=== PATIENT | male | born 1965 | race Caucasian/White ===

== ENCOUNTER 2018-03-01 15:10 | Emergency (ER) | payer MEDICAID ==
[~2018-03-01] VITALS: Ht 175.3 cm; Wt 100.0 kg
[~2018-03-01 15:10] MED LIST: BUPR150T6 PO; BUPR300T54 PO; CARB1TAB23 PO; DIPH-423 PO; GABA600T2 PO; HYDR50CA5 PO; IBUP-1986 PO; INULIN SQ; MELO-100 PO; METF10004 PO; METF500T7 PO; ONDA8TAB9 PO; PANT-47 PO; PRAZ2CAP2 PO; TOPI25TA15 PO; ZOLP10TA5 PO; [UNRECOGNIZED DRUG - OTHER] PO
[2018-03-01 15:32] VITALS: BP 135/80
[2018-03-01] MEDS ORDERED: PROPARACAINE/FLUORESCEIN ophthalmic drops 5ml bottle LEFTEYE ONE (15:50)
[2018-03-01] MEDS ORDERED: ACYC-202 PO (16:15)
== END 2018-03-01 16:39 | disposition home or self-care (01) ==
LOC: ER 15:11
DX: H02.89 Other specified disorders of eyelid (principal); E11.9 Type 2 diabetes mellitus without complications; G89.29 Other chronic pain; F12.90 Cannabis use, unspecified, uncomplicated; F15.90 Other stimulant use, unspecified, uncomplicated; Z98.890 Other specified postprocedural states; Z88.5 Allergy status to narcotic agent; Z79.84 Long term (current) use of oral hypoglycemic drugs; Z79.899 Other long term (current) drug therapy
CPT/HCPCS: 99283; A6410

== ENCOUNTER 2019-08-24 01:28 | Inpatient (IN) | payer MEDICAID ==
[~2019-08-24] VITALS: Ht 177.8 cm; Wt 101.8 kg
[2019-08-24] VITALS (8 sets, daily range): BP systolic 129–147; BP diastolic 69–81
[~2019-08-24 01:28] MED LIST changes: +GABA600T13 PO; -GABA600T2 PO; +METF-438 PO; -METF10004 PO; +METF500T20 PO; -METF500T7 PO
[2019-08-24 02:06] LABS: BASOPHILS # (AUTO) 0.1 X10'3 (0-0.2); BASOPHILS % (AUTO) 0.9 % (0-1); EOSINOPHILS # (AUTO) 0.2 X10'3 (0-0.9); EOSINOPHILS % (AUTO) 1.7 % (0-6); HEMATOCRIT 40.5 % (42.0-52.0); HEMOGLOBIN 14.4 g/dl (14.0-17.9); LYMPHOCYTES # (AUTO) 5.2 X10'3 (1.1-4.8); LYMPHOCYTES % (AUTO) 48.9 % (21-51); MEAN CORPUSCULAR HEMOGLOBIN 32.8 PG (27.0-31.0); MEAN CORPUSCULAR HGB CONC 35.4 g/dL (33.0-36.5); MEAN CORPUSCULAR VOLUME 92.7 FL (78-98); MEAN PLATELET VOLUME 8.5 FL (7.4-10.4); MONOCYTES # (AUTO) 0.7 X10'3 (0-0.9); MONOCYTES % (AUTO) 6.8 % (2-12); NEUTROPHILS # (AUTO) 4.4 X10'3 (1.8-7.7); NEUTROPHILS % (AUTO) 41.7 % (42-75); PLATELET COUNT 250 X10'3 (140-440); RED BLOOD COUNT 4.37 X10'6 (4.70-6.10); RED CELL DISTRIBUTION WIDTH 13.6 % (11.5-14.5); WHITE BLOOD COUNT 10.7 X10'3 (4.5-11.0)
[2019-08-24 02:17] LABS: ALANINE AMINOTRANSFERASE 68 U/L (12-78); ALBUMIN 4.2 G/DL (3.4-5.0); ALBUMIN/GLOBULIN RATIO 1.3 (1.1-1.5); ALKALINE PHOSPHATASE 67 IU/L (46-116); ANION GAP 15 (8-16); ASPARTATE AMINO TRANSFERASE 39 U/L (10-37); BILIRUBIN,TOTAL 0.2 MG/DL (0.1-1.0); BLOOD UREA NITROGEN 12 MG/DL (7-18); BUN/CREATININE RATIO 8.5 (5.4-32.0); CALCIUM 10.4 MG/DL (8.5-10.1); CHLORIDE 105 MMOL/L (99-107); CREATININE 1.41 MG/DL (0.60-1.10); GLUCOSE 161 MG/DL (70-104); POTASSIUM 3.9 MMOL/L (3.5-5.1); SODIUM 141 MMOL/L (135-145); TOTAL CARBON DIOXIDE 20.8 MMOL/L (24-32); TOTAL PROTEIN 7.5 G/DL (6.4-8.2); eGFR 53 ML/MIN
[2019-08-24 02:39] LABS: URINE AMPHETAMINE SCREEN NEGATIVE (Neg); URINE BARBITUATE SCREEN NEGATIVE (Neg); URINE BENZODIAZEPINES SCREEN NEGATIVE (Neg); URINE CANNABINOID SCREEN NEGATIVE (Neg); URINE COCAINE SCREEN NEGATIVE (Neg); URINE METHADONE SCREEN NEGATIVE (Neg); URINE OPIATE SCREEN NEGATIVE (Neg); URINE PHENCYCLIDINE SCREEN NEGATIVE (Neg)
[2019-08-24 02:42] LABS: ETHANOL 0.097 GM/DL (0.0-0.010)
[2019-08-24] MEDS ORDERED: normal saline 1000ML IV soln IVB ONE ×2 (02:45→04:00)
[2019-08-24] MEDS ORDERED: LORazepam 2 mg/ml vial IV ONE (02:45)
[2019-08-24 02:52] LABS: LIPASE 105 U/L (73-393)
[2019-08-24] MEDS ORDERED: PRAZ5CAP PO (04:19)
[2019-08-24] MEDS ORDERED: NORT25CA PO (04:19)
[2019-08-24] MEDS ORDERED: INSU100I31 SQ (04:21)
[2019-08-24] MEDS ORDERED: normal saline 1000ml 1,000 ML IV SCH (04:57)
[2019-08-24] MEDS ORDERED: BENZ1TAB7 PO (04:59)
[2019-08-24] MEDS ORDERED: magnesium hydroxide 30ml (MOM) UD suspension PO PRN (05:00)
[2019-08-24] MEDS ORDERED: metoprolol tartrate 1mg/ml inj IV PRN (05:00)
[2019-08-24] MEDS ORDERED: ondansetron/PF 4mg/2ml inj IV PRN (05:00)
[2019-08-24] MEDS ORDERED: acetaminophen 325mg tablet PO PRN (05:00)
[2019-08-24] MEDS ORDERED: aspirin 81mg tab.chew PO ONE (05:00)
[2019-08-24] MEDS ORDERED: regadenoson 0.4mg/5ml syringe IV PRN (05:00)
[2019-08-24] MEDS ORDERED: nitroGLYCERIN 0.4mg SUBLingual tab SL PRN (05:00)
[2019-08-24] MEDS ORDERED: enoxaparin 80mg/0.8ml syringe SUBCUT ONE (05:00)
[2019-08-24] MEDS ORDERED: mag hydrox/Alum hydrox/simeth 30ml oral suspension PO PRN (05:00)
[2019-08-24] MEDS ORDERED: aminophylline 250mg/10ml inj. IV PRN (05:00)
[2019-08-24] MEDS ORDERED: hydrOXYzine 25 MG tablet PO PRN (05:35)
--- NOTE | 2019-08-24 06:45 | NUR ---
Patient in room PCU 3017. I have received report from Frances RN and had the opportunity to ask questions and assume patient care.
--- NOTE | 2019-08-24 06:53 | NUR ---
Patient received from ED. Patient vitals taken and are within normal limits. Patient oriented to call light and room. Patient resting and in no signs of distress.
--- NOTE | 2019-08-24 07:41 | NUR ---
Page Dr. Melendez PAGER ID: [phone] MESSAGE: [id number] Jass Wong: Is Shira Scan still scheduled for today? If rescheduled, could I place patient on CC diet? Thank you, Kristen ext [phone].
[2019-08-24] MEDS ORDERED: insulin glargine (Lantus) pen - multi-dose SQ SCH (08:00)
[2019-08-24] MEDS ORDERED: benztropine 1mg tablet PO SCH (08:00)
[2019-08-24] MEDS ORDERED: aspirin 81mg tab.chew PO SCH (08:30)
[2019-08-24] MEDS: gabapentin 300mg capsule PO SCH ×2 (09:23→13:03)
[2019-08-24] MEDS ORDERED: levoTHYROXINE 25mcg tablet PO SCH (10:10)
--- NOTE | 2019-08-24 13:39 | NUR ---
Page Dr. Melendez PAGER ID: [phone] MESSAGE: [phone] Jass Wong: Patient's Shira scan results are in, fyi. Thank you, ext [phone].
[2019-08-24] MEDS ORDERED: LEVO25TA7 PO (13:52)
[2019-08-24] MEDS ORDERED: ASPI-1265 PO (13:52)
--- NOTE | 2019-08-24 15:30 | NUR ---
Patient stable for discharge per MD orders. All discharge instructions reviewed with patient and all questions answered. New prescriptions e-scripted to patient's preferred pharmacy. PIV & residential monitor discontinued. Belongings collected and sent with patient. Patient left in private vehicle with girlfriend. Patient walked out by primary RN.
[2019-08-24] MEDS ORDERED: enoxaparin 60mg/0.6ml syringe SUBCUT SCH (20:00)
[2019-08-24] MEDS ORDERED: enoxaparin 30mg/0.3ml syringe SUBCUT SCH (20:00)
[2019-08-24] MEDS ORDERED: nortriptyline 25mg capsule PO SCH (21:00)
[2019-08-24] MEDS ORDERED: prazosin 1mg capsule PO SCH (21:00)
== END 2019-08-24 12:47 | disposition home or self-care (01) | DRG 243 ==
LOC: ER 01:28 → ED HOLD 04:59 → PCU 3S 06:53
PROVIDERS: ADMIT Internal Medicine; ATTEND Family Medicine
PROC: 4A02XM4 Measurement of Cardiac Total Activity, External Approach (ICD-10-PCS; principal; 2019-08-24)
PROC: 3E033HZ Introduction of Radioactive Substance into Peripheral Vein, Percutaneous Approach (ICD-10-PCS; 2019-08-24)
DX: K21.9 Gastro-esophageal reflux disease without esophagitis (principal); E83.52 Hypercalcemia; E03.9 Hypothyroidism, unspecified; E11.9 Type 2 diabetes mellitus without complications; E78.5 Hyperlipidemia, unspecified; F10.920 Alcohol use, unspecified with intoxication, uncomplicated; F41.0 Panic disorder [episodic paroxysmal anxiety]; F43.10 Post-traumatic stress disorder, unspecified; B19.20 Unspecified viral hepatitis C without hepatic coma; F17.210 Nicotine dependence, cigarettes, uncomplicated; F12.90 Cannabis use, unspecified, uncomplicated; F32.9 Major depressive disorder, single episode, unspecified; G89.29 Other chronic pain; M54.9 Dorsalgia, unspecified; I10 Essential (primary) hypertension; I20.0 Unstable angina; N28.9 Disorder of kidney and ureter, unspecified; Z82.49 Family history of ischemic heart disease and other diseases of the circulatory system; Z88.5 Allergy status to narcotic agent
CPT/HCPCS: 36415; 71045; 78452; 80053; 80305; 80320; 82948; 83690; 84443; 84484; 85025; 87081; 93005; 93017; 96374; 99285; A9500; G0378; J1650; J1815; J2060; J2785

== ENCOUNTER 2019-09-24 21:24 | Emergency (ER) | payer MEDICAID ==
[~2019-09-24] VITALS: Ht 175.3 cm; Wt 104.0 kg
[~2019-09-24 21:24] MED LIST changes: +ASPI-1265 PO; +BENZ1TAB7 PO; -BUPR150T6 PO; -BUPR300T54 PO; -CARB1TAB23 PO; -DIPH-423 PO; -IBUP-1986 PO; +INSU100I31 SQ; -INULIN SQ; +LEVO25TA7 PO; -MELO-100 PO; +NORT25CA PO; -ONDA8TAB9 PO; -PANT-47 PO; -PRAZ2CAP2 PO; +PRAZ5CAP PO; -TOPI25TA15 PO; -ZOLP10TA5 PO; -[UNRECOGNIZED DRUG - OTHER] PO
--- NOTE | 2019-09-24 21:52 | NUR ---
Pt brought to room 25 in overflow from triage, escorted by RN and security. Pt reports that he is having an anxiety attack and during the height of it he had thoughts of cutting himself. He states that he has cut himself before in a suicide attempt. The patient also states that he currently does not have the desire to cut himself as he feels that the atarax he took at home is starting to kick in.
--- NOTE | 2019-09-24 21:56 | NUR ---
Pt reports that he drank a full bottle of rum tonight, finishing at 2029.
[2019-09-24] MEDS ORDERED: PRAZ5CAP PO (22:00)
[2019-09-24] MEDS ORDERED: LEVO50TA8 PO (22:02)
[2019-09-24] MEDS ORDERED: ASPI81TA52 PO (22:02)
--- NOTE | 2019-09-24 22:36 | NUR ---
Notified LEN Marrero of 89/48 SBP who verbally ordered 1L NS bolus and stated that he would come bedside to evaluate the patient.
[2019-09-24] MEDS ORDERED: normal saline 1000ml 1,000 ML IV ONE (22:45)
--- NOTE | 2019-09-24 23:20 | NUR ---
Girlfriend Carmela Ayala [phone]. The patient requests that the girlfriend is contacted if he is placed or if he is being discharged. She took all of the patients clothes home with her. Patient resting comfortably in bed and getting fludis via IV. Q15 checks for safety.
[2019-09-24 23:43] LABS: CLARITY,URINE CLEAR (Clear); COLOR,URINE YELLOW (Yellow); GLUCOSE, URINE 500 mg/dl (Neg); KETONES,URINE NEGATIVE (Neg); LEUKOCYTE ESTERASE ,URINE NEGATIVE (Neg); NITRITES, URINE NEGATIVE (Neg); OCCULT BLOOD,URINE NEGATIVE (Neg); PROTEIN,URINE NEGATIVE (Neg); UROBILINOGEN,URINE 0.2 E.U/dL (0.2-1.0)
--- NOTE | 2019-09-24 23:43 | NUR ---
Pt is sleeping on his right side at the moment with visible respirations. Pt is not in distress at this time. At 2325, he reported that he was developing a mild headache but denied medication intervention.
[2019-09-24 23:51] LABS: UA COLLECTION TYPE URINAL
[2019-09-24 23:52] LABS: URINE AMPHETAMINE SCREEN NEGATIVE (Neg); URINE BARBITUATE SCREEN NEGATIVE (Neg); URINE BENZODIAZEPINES SCREEN NEGATIVE (Neg); URINE CANNABINOID SCREEN NEGATIVE (Neg); URINE COCAINE SCREEN NEGATIVE (Neg); URINE METHADONE SCREEN NEGATIVE (Neg); URINE OPIATE SCREEN NEGATIVE (Neg); URINE PHENCYCLIDINE SCREEN NEGATIVE (Neg)
[2019-09-24 23:55] LABS: BASOPHILS # (AUTO) 0.1 X10'3 (0-0.2); BASOPHILS % (AUTO) 1.1 % (0-1); EOSINOPHILS # (AUTO) 0.1 X10'3 (0-0.9); EOSINOPHILS % (AUTO) 1.3 % (0-6); HEMATOCRIT 35.9 % (42.0-52.0); HEMOGLOBIN 12.8 g/dl (14.0-17.9); LYMPHOCYTES # (AUTO) 3.3 X10'3 (1.1-4.8); LYMPHOCYTES % (AUTO) 45.8 % (21-51); MEAN CORPUSCULAR HEMOGLOBIN 33.2 PG (27.0-31.0); MEAN CORPUSCULAR HGB CONC 35.8 g/dL (33.0-36.5); MEAN CORPUSCULAR VOLUME 92.9 FL (78-98); MEAN PLATELET VOLUME 8.6 FL (7.4-10.4); MONOCYTES # (AUTO) 0.5 X10'3 (0-0.9); MONOCYTES % (AUTO) 6.9 % (2-12); NEUTROPHILS # (AUTO) 3.3 X10'3 (1.8-7.7); NEUTROPHILS % (AUTO) 44.9 % (42-75); PLATELET COUNT 206 X10'3 (140-440); RED BLOOD COUNT 3.87 X10'6 (4.70-6.10); RED CELL DISTRIBUTION WIDTH 13.8 % (11.5-14.5); WHITE BLOOD COUNT 7.3 X10'3 (4.5-11.0)
[2019-09-25 00:26] LABS: ALANINE AMINOTRANSFERASE 63 U/L (12-78); ALBUMIN 3.7 G/DL (3.4-5.0); ALBUMIN/GLOBULIN RATIO 1.3 (1.1-1.5); ALKALINE PHOSPHATASE 54 IU/L (46-116); ANION GAP 17 (8-16); BILIRUBIN,TOTAL 0.2 MG/DL (0.1-1.0); BLOOD UREA NITROGEN 13 MG/DL (7-18); BUN/CREATININE RATIO 11.3 (5.4-32.0); CALCIUM 8.8 MG/DL (8.5-10.1); CHLORIDE 104 MMOL/L (99-107); CREATININE 1.15 MG/DL (0.60-1.10); ETHANOL 0.046 GM/DL (0.0-0.010); GLUCOSE 226 MG/DL (70-104); SODIUM 139 MMOL/L (135-145); TOTAL PROTEIN 6.6 G/DL (6.4-8.2); eGFR 67 ML/MIN
[2019-09-25 00:27] LABS: ASPARTATE AMINO TRANSFERASE 35 U/L (10-37); POTASSIUM 3.9 MMOL/L (3.5-5.1)
[2019-09-25 00:57] VITALS: BP 130/69
== END 2019-09-25 01:02 | disposition home or self-care (01) ==
LOC: ER 21:26
DX: F41.9 Anxiety disorder, unspecified (principal); F31.9 Bipolar disorder, unspecified; I10 Essential (primary) hypertension; R42 Dizziness and giddiness; E11.9 Type 2 diabetes mellitus without complications; G89.29 Other chronic pain; F12.90 Cannabis use, unspecified, uncomplicated; F15.90 Other stimulant use, unspecified, uncomplicated; Z98.890 Other specified postprocedural states; Z88.5 Allergy status to narcotic agent; Z79.82 Long term (current) use of aspirin; Z79.84 Long term (current) use of oral hypoglycemic drugs; Z79.899 Other long term (current) drug therapy
CPT/HCPCS: 36415; 80053; 80305; 80320; 81003; 82948; 85025; 93005; 96360; 99284; J7030

== ENCOUNTER 2020-05-26 22:08 | Emergency (ER) | payer MEDICAID ==
[~2020-05-26] VITALS: Ht 175.3 cm; Wt 154.9 kg
[~2020-05-26 22:08] MED LIST changes: -ASPI-1265 PO; +ASPI81TA52 PO; -LEVO25TA7 PO; +LEVO50TA8 PO; +METF-900 PO; -METF500T20 PO
[2020-05-26 23:01] LABS: BASOPHILS # (AUTO) 0.1 X10'3 (0-0.2); BASOPHILS % (AUTO) 1.4 % (0-1); EOSINOPHILS % (AUTO) 0.4 % (0-6); HEMATOCRIT 42.8 % (42.0-52.0); HEMOGLOBIN 14.8 g/dl (14.0-17.9); LYMPHOCYTES # (AUTO) 3.7 X10'3 (1.1-4.8); MEAN CORPUSCULAR HEMOGLOBIN 33.4 PG (27.0-31.0); MEAN CORPUSCULAR HGB CONC 34.5 g/dL (33.0-36.5); MEAN CORPUSCULAR VOLUME 96.7 FL (78-98); MEAN PLATELET VOLUME 8.5 FL (7.4-10.4); MONOCYTES # (AUTO) 0.5 X10'3 (0-0.9); MONOCYTES % (AUTO) 4.9 % (2-12); NEUTROPHILS # (AUTO) 5.1 X10'3 (1.8-7.7); NEUTROPHILS % (AUTO) 54.3 % (42-75); PLATELET COUNT 256 X10'3 (140-440); RED BLOOD COUNT 4.43 X10'6 (4.70-6.10); RED CELL DISTRIBUTION WIDTH 13.7 % (11.5-14.5); WHITE BLOOD COUNT 9.4 X10'3 (4.5-11.0)
--- NOTE | 2020-05-26 23:07 | NUR ---
Poison control----Monitor for QRS widening, repeat 12-lead every 2-4 hours, 1-2 amps bicarb if QRS>100. Benzos and/or phenobarb for Sz. Levophed for hypotension.
[2020-05-26 23:12] LABS: ALANINE AMINOTRANSFERASE 80 U/L (12-78); ALBUMIN 4.2 G/DL (3.4-5.0); ALBUMIN/GLOBULIN RATIO 1.1 (1.1-1.5); ALKALINE PHOSPHATASE 61 IU/L (46-116); ANION GAP 15 (8-16); ASPARTATE AMINO TRANSFERASE 55 U/L (10-37); BILIRUBIN,TOTAL 0.2 MG/DL (0.1-1.0); BLOOD UREA NITROGEN 8 MG/DL (7-18); BUN/CREATININE RATIO 7.2 (5.4-32.0); CALCIUM 10.4 MG/DL (8.5-10.1); CHLORIDE 105 MMOL/L (99-107); CREATININE 1.11 MG/DL (0.60-1.10); GLUCOSE 160 MG/DL (70-104); POTASSIUM 3.9 MMOL/L (3.5-5.1); SODIUM 142 MMOL/L (135-145); TOTAL CARBON DIOXIDE 21.8 MMOL/L (24-32); eGFR 69 ML/MIN
[2020-05-26 23:13] LABS: ACETAMINOPHEN < 2.0 UG/ML (10-30)
[2020-05-26] MEDS ORDERED: MIDAZolam 1mg/ml 10ml vial IM ONE (23:25)
[2020-05-26] MEDS ORDERED: MIDAZolam 5mg/ml 2ml vial IM ONE ×2 (23:25→23:40)
--- NOTE | 2020-05-27 00:13 | NUR ---
Lesley merrill in [facility] - 05/27/20 at 0014 by DONATO while escorting patietn to [facility] and medication administration. patient robb tro
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
[2020-05-27] MEDS ORDERED: haloperidol lactate 5mg/ml inj IM ONE (00:25)
[2020-05-27] MEDS ORDERED: diphenhydrAMINE 50 mg/ml inj IM ONE (01:05)
[2020-05-27] MEDS ORDERED: MIDAZolam 5mg/ml 2ml vial IV ONE (01:35)
[2020-05-27] MEDS ORDERED: normal saline 1000ml 1,000 ML IV ONE ×4 (01:45→04:40)
[2020-05-27] MEDS ORDERED: dexmedetomidin/NS 400mcg/100ml 100 ML IV SCH ×2 (02:25→02:35)
[2020-05-27 03:21] LABS: ALBUMIN 4.1 G/DL (3.4-5.0); ANION GAP 17 (8-16); BLOOD UREA NITROGEN 9 MG/DL (7-18); BUN/CREATININE RATIO 7.1 (5.4-32.0); CALCIUM 9.5 MG/DL (8.5-10.1); CHLORIDE 107 MMOL/L (99-107); CREATINE KINASE 983 U/L (39-308); CREATININE 1.26 MG/DL (0.60-1.10); GLUCOSE 188 MG/DL (70-104); POTASSIUM 4.2 MMOL/L (3.5-5.1); SODIUM 143 MMOL/L (135-145); TOTAL CARBON DIOXIDE 19.1 MMOL/L (24-32); eGFR 60 ML/MIN
--- NOTE | 2020-05-27 06:15 | NUR ---
PATIENT SLEEPING, AUDIBLE SNORING WITH NO DISTRESS NOTED. PATIENT WOKE UP WITH TACTILE STIMULATION, MUMMBLED INAUDIBLE "... NAP...", INSTRUCTED PATIENT HE CAN TAKE A NAP AT THIS TIME, REPOSITIONED SELF FOR COMFORT AND FELL ASLEEP. PATIENT WITHIN SITE OF NURSING STATION AT ALL TIMES, NO RESTRIANTS IN PLACE AT THIS TIME, PATIENT ON ROOM AIR, 20 G IV TO RIGHT FOREARM WNL.
[2020-05-27 06:58] LABS: URINE AMPHETAMINE SCREEN NEGATIVE (Neg); URINE BARBITUATE SCREEN NEGATIVE (Neg); URINE BENZODIAZEPINES SCREEN POSITIVE (Neg); URINE CANNABINOID SCREEN NEGATIVE (Neg); URINE COCAINE SCREEN NEGATIVE (Neg); URINE METHADONE SCREEN NEGATIVE (Neg); URINE OPIATE SCREEN NEGATIVE (Neg); URINE PHENCYCLIDINE SCREEN NEGATIVE (Neg)
--- NOTE | 2020-05-27 08:43 | NUR ---
YULIANA CEDENO [phone]. Addendum: 05/27/20 at 0845 by [facility]
--- NOTE | 2020-05-27 12:44 | NUR ---
[facility] AT BEDSIDE TO SPEAK WITH PATIENT AT THIS TIME.
--- NOTE | 2020-05-27 13:42 | NUR ---
Patient ate a meal and appears to be resting comfortably
[2020-05-27 14:42] VITALS: BP 139/65
== END 2020-05-27 14:43 ==
LOC: ER 22:08
DX: T50.902A Poisoning by unspecified drugs, medicaments and biological substances, intentional self-harm, initial encounter (principal); R45.851 Suicidal ideations; F10.129 Alcohol abuse with intoxication, unspecified; Y90.0 Blood alcohol level of less than 20 mg/100 ml; I10 Essential (primary) hypertension; E11.9 Type 2 diabetes mellitus without complications; G89.29 Other chronic pain; F41.9 Anxiety disorder, unspecified; F12.90 Cannabis use, unspecified, uncomplicated; F15.90 Other stimulant use, unspecified, uncomplicated; Z86.19 Personal history of other infectious and parasitic diseases; Z98.890 Other specified postprocedural states; Z88.5 Allergy status to narcotic agent; Z79.82 Long term (current) use of aspirin; Z79.4 Long term (current) use of insulin; Z79.899 Other long term (current) drug therapy; Y92.89 Other specified places as the place of occurrence of the external cause
CPT/HCPCS: 36415; 80048; 80053; 80305; 80320; 80329; 82550; 82948; 84443; 85025; 93005; 96361; 96372; 96374; 99291; J1200; J1630; J2250; J7030

== ENCOUNTER 2020-06-04 10:04 | Emergency (ER) | payer MEDICAID ==
[~2020-06-04] VITALS: Ht 175.3 cm; Wt 103.6 kg
[2020-06-04 11:45] LABS: BASOPHILS # (AUTO) 0.1 X10'3 (0-0.2); BASOPHILS % (AUTO) 0.7 % (0-1); EOSINOPHILS # (AUTO) 0.2 X10'3 (0-0.9); EOSINOPHILS % (AUTO) 1.9 % (0-6); HEMATOCRIT 43.9 % (42.0-52.0); HEMOGLOBIN 14.9 g/dl (14.0-17.9); LYMPHOCYTES # (AUTO) 2.4 X10'3 (1.1-4.8); LYMPHOCYTES % (AUTO) 25.7 % (21-51); MEAN CORPUSCULAR HEMOGLOBIN 32.8 PG (27.0-31.0); MEAN CORPUSCULAR VOLUME 96.7 FL (78-98); MEAN PLATELET VOLUME 8.2 FL (7.4-10.4); MONOCYTES # (AUTO) 0.7 X10'3 (0-0.9); MONOCYTES % (AUTO) 7.5 % (2-12); NEUTROPHILS % (AUTO) 64.2 % (42-75); PLATELET COUNT 244 X10'3 (140-440); RED BLOOD COUNT 4.55 X10'6 (4.70-6.10); RED CELL DISTRIBUTION WIDTH 13.9 % (11.5-14.5); WHITE BLOOD COUNT 9.3 X10'3 (4.5-11.0)
[2020-06-04 11:59] LABS: ALANINE AMINOTRANSFERASE 100 U/L (12-78); ALBUMIN 4.3 G/DL (3.4-5.0); ALBUMIN/GLOBULIN RATIO 1.3 (1.1-1.5); ALKALINE PHOSPHATASE 58 IU/L (46-116); ANION GAP 8 (8-16); ASPARTATE AMINO TRANSFERASE 33 U/L (10-37); BILIRUBIN,TOTAL 0.3 MG/DL (0.1-1.0); BLOOD UREA NITROGEN 15 MG/DL (7-18); BUN/CREATININE RATIO 15.3 (5.4-32.0); CALCIUM 9.6 MG/DL (8.5-10.1); CHLORIDE 101 MMOL/L (99-107); CREATININE 0.98 MG/DL (0.60-1.10); GLUCOSE 146 MG/DL (70-104); PARTIAL THROMBOPLASTIN TIME 25 SECONDS (22-32); POTASSIUM 4.1 MMOL/L (3.5-5.1); SODIUM 135 MMOL/L (135-145); TOTAL CARBON DIOXIDE 25.9 MMOL/L (24-32); TOTAL PROTEIN 7.6 G/DL (6.4-8.2); eGFR 80 ML/MIN
[2020-06-04 12:25] VITALS: BP 151/97
[2020-06-04 13:23] LABS: OCCULT BLOOD STOOL POSITIVE (Neg)
== END 2020-06-04 12:27 | disposition home or self-care (01) ==
LOC: ER 10:05
DX: K92.2 Gastrointestinal hemorrhage, unspecified (principal); I10 Essential (primary) hypertension; E11.9 Type 2 diabetes mellitus without complications; G89.29 Other chronic pain; F41.9 Anxiety disorder, unspecified; F32.9 Major depressive disorder, single episode, unspecified; F12.90 Cannabis use, unspecified, uncomplicated; F15.90 Other stimulant use, unspecified, uncomplicated; Z86.19 Personal history of other infectious and parasitic diseases; Z98.890 Other specified postprocedural states; Z88.5 Allergy status to narcotic agent; Z79.82 Long term (current) use of aspirin; Z79.4 Long term (current) use of insulin; Z79.899 Other long term (current) drug therapy
CPT/HCPCS: 36415; 80053; 82272; 85025; 85610; 85730; 99283

== ENCOUNTER 2020-06-11 07:18 | Emergency (ER) | payer MEDICAID ==
[~2020-06-11] VITALS: Ht 175.3 cm; Wt 90.0 kg
[2020-06-11] MEDS ORDERED: famotidine/PF 10 mg/ml inj IV ONE (07:45)
[2020-06-11 07:56] LABS: BASOPHILS # (AUTO) 0.1 X10'3 (0-0.2); BASOPHILS % (AUTO) 1.1 % (0-1); EOSINOPHILS # (AUTO) 0.6 X10'3 (0-0.9); EOSINOPHILS % (AUTO) 6.7 % (0-6); HEMATOCRIT 43.1 % (42.0-52.0); HEMOGLOBIN 14.8 g/dl (14.0-17.9); LYMPHOCYTES # (AUTO) 2.3 X10'3 (1.1-4.8); LYMPHOCYTES % (AUTO) 24.8 % (21-51); MEAN CORPUSCULAR HEMOGLOBIN 32.9 PG (27.0-31.0); MEAN CORPUSCULAR HGB CONC 34.4 g/dL (33.0-36.5); MEAN CORPUSCULAR VOLUME 95.7 FL (78-98); MEAN PLATELET VOLUME 8.4 FL (7.4-10.4); MONOCYTES # (AUTO) 0.7 X10'3 (0-0.9); MONOCYTES % (AUTO) 6.9 % (2-12); NEUTROPHILS # (AUTO) 5.7 X10'3 (1.8-7.7); NEUTROPHILS % (AUTO) 60.5 % (42-75); PLATELET COUNT 206 X10'3 (140-440); RED CELL DISTRIBUTION WIDTH 13.9 % (11.5-14.5); WHITE BLOOD COUNT 9.4 X10'3 (4.5-11.0)
[2020-06-11 08:09] LABS: ALANINE AMINOTRANSFERASE 67 U/L (12-78); ALBUMIN 3.8 G/DL (3.4-5.0); ALKALINE PHOSPHATASE 72 IU/L (46-116); ANION GAP 7 (8-16); ASPARTATE AMINO TRANSFERASE 30 U/L (10-37); BILIRUBIN,TOTAL 0.3 MG/DL (0.1-1.0); BLOOD UREA NITROGEN 15 MG/DL (7-18); BUN/CREATININE RATIO 12.7 (5.4-32.0); CALCIUM 10.2 MG/DL (8.5-10.1); CHLORIDE 100 MMOL/L (99-107); CREATININE 1.18 MG/DL (0.60-1.10); GLUCOSE 268 MG/DL (70-104); LIPASE 97 U/L (73-393); POTASSIUM 4.2 MMOL/L (3.5-5.1); SODIUM 136 MMOL/L (135-145); TOTAL CARBON DIOXIDE 29.5 MMOL/L (24-32); TOTAL PROTEIN 7.6 G/DL (6.4-8.2); eGFR 64 ML/MIN
[2020-06-11] MEDS ORDERED: iohexol 300mg/ml 100ml inj. ONE (08:36)
[2020-06-11] MEDS ORDERED: MESSAGE TO NURSING PO SCH (09:00)
[2020-06-11] MEDS ORDERED: mag hydrox/Alum hydrox/simeth 30ml oral suspension PO ONE (09:25)
[2020-06-11] MEDS ORDERED: diphenhydrAMINE 25 MG/10 ML UD oral solution PO ONE (09:25)
[2020-06-11] MEDS ORDERED: LIDOcaine Viscous 15ml cup MM ONE (09:25)
[2020-06-11] MEDS ORDERED: ondansetron/PF 4mg/2ml inj IV ONE (09:35)
[2020-06-11] MEDS ORDERED: OMEP40CA13 PO (10:27)
[2020-06-11] MEDS ORDERED: FAMO40TA73 PO (10:27)
[2020-06-11 10:38] VITALS: BP 152/84
== END 2020-06-11 10:40 | disposition home or self-care (01) ==
LOC: ER 07:19
DX: K29.00 Acute gastritis without bleeding (principal); I10 Essential (primary) hypertension; E11.9 Type 2 diabetes mellitus without complications; G89.29 Other chronic pain; F41.9 Anxiety disorder, unspecified; F32.9 Major depressive disorder, single episode, unspecified; F12.90 Cannabis use, unspecified, uncomplicated; F15.90 Other stimulant use, unspecified, uncomplicated; Z98.890 Other specified postprocedural states; Z88.5 Allergy status to narcotic agent; Z79.82 Long term (current) use of aspirin; Z79.4 Long term (current) use of insulin; Z79.899 Other long term (current) drug therapy
CPT/HCPCS: 36415; 74177; 80053; 83690; 85025; 93005; 96374; 96375; 99285; J2405; J3490; Q0163; Q9967

== ENCOUNTER 2021-03-22 22:37 | Emergency (ER) | payer MEDICAID ==
[~2021-03-22] VITALS: Ht 175.3 cm; Wt 101.4 kg
[~2021-03-22 22:37] MED LIST changes: +CYCL-1 PO; +FAMO40TA73 PO
[2021-03-22] MEDS ORDERED: ketorolac trometh. 30mg/ml inj. IV STA (22:51)
[2021-03-22] MEDS ORDERED: normal saline 1000ml 1,000 ML IVB ONE (22:55)
[2021-03-22] MEDS ORDERED: normal saline 1000ML IV soln IVB ONE (23:05)
[2021-03-22] MEDS ORDERED: ketorolac tromethamine 15mg/ml inj. IV ONE (23:05)
[2021-03-22 23:26] LABS: BASOPHILS # (AUTO) 0.1 X10'3 (0-0.2); EOSINOPHILS # (AUTO) 0.1 X10'3 (0-0.9); EOSINOPHILS % (AUTO) 0.9 % (0-6); HEMATOCRIT 41.2 % (42.0-52.0); HEMOGLOBIN 14.2 g/dl (14.0-17.9); LYMPHOCYTES % (AUTO) 43.7 % (21-51); MEAN CORPUSCULAR HEMOGLOBIN 32.2 PG (27.0-31.0); MEAN CORPUSCULAR HGB CONC 34.4 g/dL (33.0-36.5); MEAN CORPUSCULAR VOLUME 93.7 FL (78-98); MEAN PLATELET VOLUME 8.3 FL (7.4-10.4); MONOCYTES # (AUTO) 0.6 X10'3 (0-0.9); MONOCYTES % (AUTO) 7.1 % (2-12); NEUTROPHILS # (AUTO) 4.3 X10'3 (1.8-7.7); NEUTROPHILS % (AUTO) 47.3 % (42-75); PLATELET COUNT 222 X10'3 (140-440); WHITE BLOOD COUNT 9.1 X10'3 (4.5-11.0)
[2021-03-22 23:48] LABS: ALANINE AMINOTRANSFERASE 81 U/L (12-78); ALBUMIN 4.2 G/DL (3.4-5.0); ALBUMIN/GLOBULIN RATIO 1.1 (1.1-1.5); ALKALINE PHOSPHATASE 81 IU/L (46-116); ANION GAP 15 (8-16); ASPARTATE AMINO TRANSFERASE 54 U/L (10-37); BILIRUBIN,TOTAL 0.3 MG/DL (0.1-1.0); BLOOD UREA NITROGEN 10 MG/DL (7-18); BUN/CREATININE RATIO 9.6 (5.4-32.0); CHLORIDE 103 MMOL/L (99-107); CREATININE 1.04 MG/DL (0.60-1.10); ETHANOL 0.222 GM/DL (0.0-0.010); GLUCOSE 273 MG/DL (70-104); LIPASE 51 U/L (73-393); POTASSIUM 3.9 MMOL/L (3.5-5.1); SODIUM 138 MMOL/L (135-145); TOTAL CARBON DIOXIDE 19.9 MMOL/L (24-32); TOTAL PROTEIN 7.9 G/DL (6.4-8.2); eGFR 74 ML/MIN
[2021-03-23 00:01] LABS: CLARITY,URINE CLEAR (Clear); COLOR,URINE STRAW (Yellow); GLUCOSE, URINE 100 mg/dl (Neg); KETONES,URINE NEGATIVE (Neg); LEUKOCYTE ESTERASE ,URINE NEGATIVE (Neg); NITRITES, URINE NEGATIVE (Neg); OCCULT BLOOD,URINE NEGATIVE (Neg); PROTEIN,URINE NEGATIVE (Neg); UROBILINOGEN,URINE 0.2 E.U/dL (0.2-1.0)
[2021-03-23 00:07] LABS: UA COLLECTION TYPE URINAL
[2021-03-23 00:13] LABS: URINE AMPHETAMINE SCREEN NEGATIVE (Neg); URINE BARBITUATE SCREEN NEGATIVE (Neg); URINE BENZODIAZEPINES SCREEN NEGATIVE (Neg); URINE CANNABINOID SCREEN NEGATIVE (Neg); URINE COCAINE SCREEN NEGATIVE (Neg); URINE METHADONE SCREEN NEGATIVE (Neg); URINE OPIATE SCREEN NEGATIVE (Neg); URINE PHENCYCLIDINE SCREEN NEGATIVE (Neg)
[2021-03-23] MEDS ORDERED: DIAZ-351 PO (00:24)
[2021-03-23] MEDS ORDERED: METH-797 PO (00:24)
[2021-03-23] MEDS ORDERED: cyclobenzaprine 10mg tablet PO ONE (00:25)
[2021-03-23 00:48] VITALS: BP 116/71
== END 2021-03-23 01:38 | disposition home or self-care (01) ==
LOC: ER 22:38
DX: S39.012A Strain of muscle, fascia and tendon of lower back, initial encounter (principal); F10.920 Alcohol use, unspecified with intoxication, uncomplicated; E11.65 Type 2 diabetes mellitus with hyperglycemia; Z79.4 Long term (current) use of insulin; I10 Essential (primary) hypertension; F32.9 Major depressive disorder, single episode, unspecified; F41.9 Anxiety disorder, unspecified; F12.10 Cannabis abuse, uncomplicated; F15.10 Other stimulant abuse, uncomplicated; Z88.5 Allergy status to narcotic agent; Z79.899 Other long term (current) drug therapy
CPT/HCPCS: 36415; 80053; 80305; 80320; 81003; 83690; 85025; 96361; 96374; 99284; J1885; J7030; 99283

== ENCOUNTER 2021-07-12 20:39 | Emergency (ER) | payer MEDICAID ==
[~2021-07-12] VITALS: Ht 175.3 cm; Wt 94.5 kg
[~2021-07-12 20:39] MED LIST changes: +DIAZ-351 PO; +METH-797 PO
[2021-07-12 21:15] LABS: BASOPHILS # (AUTO) 0.1 X10'3 (0-0.2); EOSINOPHILS # (AUTO) 0.1 X10'3 (0-0.9); EOSINOPHILS % (AUTO) 1.1 % (0-6); HEMOGLOBIN 14.3 g/dl (14.0-17.9); LYMPHOCYTES # (AUTO) 3.2 X10'3 (1.1-4.8); LYMPHOCYTES % (AUTO) 41.5 % (21-51); MEAN CORPUSCULAR HEMOGLOBIN 32.5 PG (27.0-31.0); MEAN CORPUSCULAR HGB CONC 34.9 g/dL (33.0-36.5); MEAN CORPUSCULAR VOLUME 93.2 FL (78-98); MEAN PLATELET VOLUME 8.1 FL (7.4-10.4); MONOCYTES # (AUTO) 0.6 X10'3 (0-0.9); MONOCYTES % (AUTO) 8.1 % (2-12); NEUTROPHILS # (AUTO) 3.7 X10'3 (1.8-7.7); NEUTROPHILS % (AUTO) 48.3 % (42-75); PLATELET COUNT 194 X10'3 (140-440); RED CELL DISTRIBUTION WIDTH 13.5 % (11.5-14.5); WHITE BLOOD COUNT 7.6 X10'3 (4.5-11.0)
[2021-07-12 21:25] LABS: ALANINE AMINOTRANSFERASE 122 U/L (12-78); ALBUMIN 3.9 G/DL (3.4-5.0); ALKALINE PHOSPHATASE 125 IU/L (46-116); ANION GAP 14 (8-16); ASPARTATE AMINO TRANSFERASE 51 U/L (10-37); BILIRUBIN,TOTAL 0.2 MG/DL (0.1-1.0); BLOOD UREA NITROGEN 10 MG/DL (7-18); BUN/CREATININE RATIO 9.2 (5.4-32.0); CALCIUM 9.5 MG/DL (8.5-10.1); CHLORIDE 98 MMOL/L (99-107); CREATININE 1.09 MG/DL (0.60-1.10); GLUCOSE 350 MG/DL (70-104); LIPASE 81 U/L (73-393); POTASSIUM 4.3 MMOL/L (3.5-5.1); SODIUM 133 MMOL/L (135-145); TOTAL CARBON DIOXIDE 21.3 MMOL/L (24-32); eGFR 70 ML/MIN
[2021-07-12] MEDS ORDERED: normal saline 1000ml 1,000 ML IV ONE (23:30)
[2021-07-13] MEDS ORDERED: normal saline 1000ml 1,000 ML IV ONE (00:25)
[2021-07-13 01:28] VITALS: BP 128/87
== END 2021-07-13 01:30 | disposition home or self-care (01) ==
LOC: ER 20:39
DX: E11.65 Type 2 diabetes mellitus with hyperglycemia (principal); R19.7 Diarrhea, unspecified; R42 Dizziness and giddiness; I10 Essential (primary) hypertension; G89.29 Other chronic pain; F41.9 Anxiety disorder, unspecified; F32.9 Major depressive disorder, single episode, unspecified; F12.90 Cannabis use, unspecified, uncomplicated; F15.90 Other stimulant use, unspecified, uncomplicated; Z98.890 Other specified postprocedural states; Z72.89 Other problems related to lifestyle; Z88.5 Allergy status to narcotic agent; Z79.82 Long term (current) use of aspirin; Z79.4 Long term (current) use of insulin; Z79.899 Other long term (current) drug therapy
CPT/HCPCS: 36415; 80053; 82948; 83690; 85025; 96360; 99283; J7030

== ENCOUNTER 2021-09-22 09:04 | Emergency (ER) | payer MEDICAID ==
[~2021-09-22] VITALS: Ht 175.3 cm; Wt 110.0 kg
[2021-09-22 09:11] VITALS: BP 197/88
[2021-09-22] MEDS ORDERED: LIDOcaine 1% 30ml preserv. free vial SQ STA (09:15)
[2021-09-22] MEDS ORDERED: MELO7.5T12 PO (09:28)
--- NOTE | 2021-09-22 09:50 | NUR ---
PT SEEN, TREATED AND DC IN TRIAGE BY
[2021-09-23] MEDS ORDERED: MELO15TA13 PO ×2 (13:05→13:59)
== END 2021-09-22 09:51 | disposition home or self-care (01) ==
LOC: ER 09:05
DX: S29.011A Strain of muscle and tendon of front wall of thorax, initial encounter (principal); I10 Essential (primary) hypertension; E11.9 Type 2 diabetes mellitus without complications; G89.29 Other chronic pain; F12.90 Cannabis use, unspecified, uncomplicated; F15.90 Other stimulant use, unspecified, uncomplicated; Z86.19 Personal history of other infectious and parasitic diseases; Z72.89 Other problems related to lifestyle; Z88.8 Allergy status to other drugs, medicaments and biological substances; Z79.82 Long term (current) use of aspirin; Z79.899 Other long term (current) drug therapy; Z79.4 Long term (current) use of insulin; X58.XXXA Exposure to other specified factors, initial encounter; Y93.89 Activity, other specified; Y92.89 Other specified places as the place of occurrence of the external cause; Y99.8 Other external cause status
CPT/HCPCS: 71045; 96372; 99283

== ENCOUNTER 2021-09-23 11:27 | Emergency (ER) | payer MEDICAID ==
[~2021-09-23] VITALS: Ht 175.3 cm; Wt 102.5 kg
[~2021-09-23 11:27] MED LIST changes: +MELO7.5T12 PO
[2021-09-23 11:44] VITALS: BP 107/84
[2021-09-23] MEDS ORDERED: LIDOcaine 1% 30ml preserv. free vial SQ STA (12:56)
[2021-09-23] MEDS ORDERED: MELO15TA13 PO ×2 (13:05→13:59)
[2021-09-23 13:08] LABS: CLARITY,URINE CLEAR (Clear); COLOR,URINE YELLOW (Yellow); GLUCOSE, URINE 250 mg/dl (Neg); KETONES,URINE TRACE mg/dl (Neg); LEUKOCYTE ESTERASE ,URINE NEGATIVE (Neg); NITRITES, URINE NEGATIVE (Neg); OCCULT BLOOD,URINE NEGATIVE (Neg); PH,URINE 5.5 (4.8-8.0); PROTEIN,URINE NEGATIVE (Neg)
[2021-09-23 13:12] LABS: UA COLLECTION TYPE NON-SPECIFIED
== END 2021-09-23 14:36 | disposition home or self-care (01) ==
LOC: ER 11:28
DX: S29.011A Strain of muscle and tendon of front wall of thorax, initial encounter (principal); I10 Essential (primary) hypertension; E11.9 Type 2 diabetes mellitus without complications; G89.29 Other chronic pain; M54.9 Dorsalgia, unspecified; F12.90 Cannabis use, unspecified, uncomplicated; F15.90 Other stimulant use, unspecified, uncomplicated; Z86.19 Personal history of other infectious and parasitic diseases; Z98.890 Other specified postprocedural states; Z88.5 Allergy status to narcotic agent; Z79.84 Long term (current) use of oral hypoglycemic drugs; Z79.4 Long term (current) use of insulin; Z79.82 Long term (current) use of aspirin; X58.XXXA Exposure to other specified factors, initial encounter; Y93.89 Activity, other specified; Y92.89 Other specified places as the place of occurrence of the external cause; Y99.8 Other external cause status
CPT/HCPCS: 20553; 81003; 99284

== ENCOUNTER 2021-12-21 19:35 | Emergency (ER) | payer MEDICAID ==
[~2021-12-21] VITALS: Ht 175.3 cm; Wt 106.4 kg
[~2021-12-21 19:35] MED LIST changes: +MELO15TA13 PO
[2021-12-21 20:13] LABS: BASOPHILS # (AUTO) 0.1 X10'3 (0-0.2); EOSINOPHILS # (AUTO) 0.1 X10'3 (0-0.9); EOSINOPHILS % (AUTO) 0.6 % (0-6); HEMATOCRIT 43.1 % (42.0-52.0); HEMOGLOBIN 15.1 g/dl (14.0-17.9); LYMPHOCYTES # (AUTO) 2.9 X10'3 (1.1-4.8); LYMPHOCYTES % (AUTO) 26.8 % (21-51); MEAN CORPUSCULAR HEMOGLOBIN 33.1 PG (27.0-31.0); MEAN CORPUSCULAR VOLUME 94.6 FL (78-98); MEAN PLATELET VOLUME 8.3 FL (7.4-10.4); MONOCYTES % (AUTO) 8.8 % (2-12); NEUTROPHILS # (AUTO) 6.8 X10'3 (1.8-7.7); NEUTROPHILS % (AUTO) 62.8 % (42-75); PLATELET COUNT 181 X10'3 (140-440); RED BLOOD COUNT 4.55 X10'6 (4.70-6.10); RED CELL DISTRIBUTION WIDTH 13.9 % (11.5-14.5); WHITE BLOOD COUNT 10.9 X10'3 (4.5-11.0)
[2021-12-21 20:15] LABS: CLARITY,URINE CLEAR (Clear); COLOR,URINE YELLOW (Yellow); GLUCOSE, URINE >=1000 mg/dl (Neg); KETONES,URINE TRACE mg/dl (Neg); LEUKOCYTE ESTERASE ,URINE NEGATIVE (Neg); NITRITES, URINE NEGATIVE (Neg); OCCULT BLOOD,URINE NEGATIVE (Neg); PH,URINE 6.5 (4.8-8.0); PROTEIN,URINE NEGATIVE (Neg); UROBILINOGEN,URINE 0.2 E.U/dL (0.2-1.0)
[2021-12-21 20:16] LABS: UA COLLECTION TYPE CLN CATCH MIDSTREAM
[2021-12-21 20:18] LABS: ALANINE AMINOTRANSFERASE 75 U/L (12-78); ALBUMIN 4.1 G/DL (3.4-5.0); ALBUMIN/GLOBULIN RATIO 1.1 (1.1-1.5); ALKALINE PHOSPHATASE 133 IU/L (46-116); ANION GAP 11 (8-16); ASPARTATE AMINO TRANSFERASE 43 U/L (10-37); BILIRUBIN,TOTAL 0.4 MG/DL (0.1-1.0); BLOOD UREA NITROGEN 13 MG/DL (7-18); BUN/CREATININE RATIO 12.1 (5.4-32.0); CALCIUM 9.6 MG/DL (8.5-10.1); CHLORIDE 99 MMOL/L (99-107); CREATININE 1.07 MG/DL (0.60-1.10); LIPASE 72 U/L (73-393); SODIUM 135 MMOL/L (135-145); TOTAL CARBON DIOXIDE 24.7 MMOL/L (24-32); TOTAL PROTEIN 7.8 G/DL (6.4-8.2); eGFR 72 ML/MIN
[2021-12-21 20:22] LABS: BACTERIA,URINE NONE SEEN /HPF (Neg); MUCUS STRANDS NONE SEEN /LPF (Neg); RBC,URINE 0-2 /HPF (0-2); SQUAMOUS EPITHELIAL CELL,UR FEW /LPF (FEW); WBC,URINE 0-4 /HPF (0-4)
[2021-12-21 20:26] LABS: GLUCOSE 234 MG/DL (70-104); POTASSIUM 3.9 MMOL/L (3.5-5.1)
[2021-12-21] MEDS ORDERED: normal saline 1000ml 1,000 ML IV ONE (22:40)
[2021-12-21] MEDS ORDERED: amox tr/potassium clavulanate 875/125mg TAB PO ONE (23:40)
[2021-12-21] MEDS ORDERED: AMOX-117 PO (23:45)
[2021-12-21] MEDS ORDERED: ONDA4TAB12 PO (23:45)
[2021-12-21 23:57] VITALS: BP 156/92
== END 2021-12-21 23:58 | disposition home or self-care (01) ==
LOC: ER 19:36
DX: K57.92 Diverticulitis of intestine, part unspecified, without perforation or abscess without bleeding (principal); R10.32 Left lower quadrant pain; R10.31 Right lower quadrant pain; R35.0 Frequency of micturition; I10 Essential (primary) hypertension; E11.9 Type 2 diabetes mellitus without complications; G89.29 Other chronic pain; F41.9 Anxiety disorder, unspecified; F32.9 Major depressive disorder, single episode, unspecified; F12.90 Cannabis use, unspecified, uncomplicated; F15.90 Other stimulant use, unspecified, uncomplicated; Z86.19 Personal history of other infectious and parasitic diseases; Z90.49 Acquired absence of other specified parts of digestive tract; Z98.890 Other specified postprocedural states; Z72.89 Other problems related to lifestyle; Z88.5 Allergy status to narcotic agent; Z79.82 Long term (current) use of aspirin; Z79.4 Long term (current) use of insulin; Z79.899 Other long term (current) drug therapy
CPT/HCPCS: 36415; 74176; 80053; 81001; 83690; 85025; 99284

== ENCOUNTER 2022-08-12 08:25 | Outpatient (CLI) | payer MEDICAID ==
[~2022-08-12 08:25] MED LIST changes: +ONDA4TAB12 PO
== END 2022-08-12 23:59 | disposition home or self-care (01) ==
LOC: RAD 08:25
PROVIDERS: ATTEND Psychiatry & Neurology Neurology
DX: R55 Syncope and collapse (principal)
CPT/HCPCS: 95813

== ENCOUNTER 2022-09-13 10:52 | Emergency (ER) | payer MEDICAID ==
[~2022-09-13] VITALS: Ht 175.3 cm; Wt 104.0 kg
[2022-09-13 11:01] VITALS: BP 120/101
[2022-09-13] MEDS ORDERED: LIDOcaine 5% patch TP STA (11:38)
[2022-09-13] MEDS ORDERED: acetaminophen 325mg tablet PO ONE ×2 (11:40→11:50)
[2022-09-13] MEDS ORDERED: ketorolac trometh. 30mg/ml inj. IV ONE (11:40)
[2022-09-13] MEDS ORDERED: ketorolac trometh. 30mg/ml inj. IM ONE (11:50)
== END 2022-09-13 12:55 | disposition home or self-care (01) ==
LOC: ER 10:55
DX: M54.42 Lumbago with sciatica, left side (principal); E11.9 Type 2 diabetes mellitus without complications; I10 Essential (primary) hypertension; F12.10 Cannabis abuse, uncomplicated; F15.10 Other stimulant abuse, uncomplicated; F41.9 Anxiety disorder, unspecified; Z88.5 Allergy status to narcotic agent; Z79.899 Other long term (current) drug therapy; Z79.82 Long term (current) use of aspirin; Z79.84 Long term (current) use of oral hypoglycemic drugs
CPT/HCPCS: 96372; 99283; J1885

== ENCOUNTER 2022-10-21 19:42 | Emergency (ER) | payer MEDICAID ==
[~2022-10-21] VITALS: Ht 176.5 cm; Wt 104.5 kg
[2022-10-21 19:47] VITALS: BP 184/97
== END 2022-10-21 21:50 | disposition home or self-care (01) ==
LOC: ER 19:42
DX: T38.3X1A Poisoning by insulin and oral hypoglycemic [antidiabetic] drugs, accidental (unintentional), initial encounter (principal); I10 Essential (primary) hypertension; E11.9 Type 2 diabetes mellitus without complications; F15.20 Other stimulant dependence, uncomplicated; F12.90 Cannabis use, unspecified, uncomplicated; Z90.49 Acquired absence of other specified parts of digestive tract; Z88.5 Allergy status to narcotic agent; Y92.89 Other specified places as the place of occurrence of the external cause
CPT/HCPCS: 82948; 99283